=== PATIENT | male | born 1965 | race Hispanic/Latino ===

== ENCOUNTER 2018-05-27 16:18 | Inpatient (IN) | payer OTHER, SELFPAY ==
[~2018-05-27 16:18] MED LIST: ISOVUE-370 76%-LOCM 1 ML ONE
[2018-05-27 16:40] LABS: #Basophils 0.1 thou/uL (0.0-0.2); #Eosinphils 0.1 thou/uL (0.0-0.7); #Lymphocytes 2.4 thou/uL (1.20-3.40); #Neutrophils 9.4 thou/uL (1.40-6.50); %Basophils 0.5 % (0.0-1.0); %Eosinophils 0.9 % (0.0-10.0); %Lymphocytes 18.3 % (21.0-51.0); %Monocytes 7.4 % (0.0-10.0); Hemoglobin 15.2 g/dL (14.0-18.0); Mean Corpuscular HGB CONC 32.8 g/dL (32.0-36.0); Mean Corpuscular Hemoglobin 29.7 pg (27.0-31.0); Mean Corpuscular Volume 90.6 fL (78.0-98.0); Mean Platelet Volume 6.3 fL (7.4-10.4); Platelet Count 357 thou/uL (130-400); RBC Distribution Width 11.8 % (11.5-14.5); Red Blood Cell (RBC) Count 5.12 mill/uL (4.70-6.10); White Blood Cell (WBC) Count 12.8 thou/uL (4.8-10.8)
[2018-05-27] MEDS ORDERED: Adacel (T-DAP) 0.5 ML SYRINGE ONE (16:44)
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
[2018-05-27 16:53] LABS: ALT (SGPT) 475 U/L (8-55); AST (SGOT) 373 U/L (5-34); Albumin 4.5 g/dL (3.5-5.0); Alkaline Phosphatase 115 U/L (40-150); Anion Gap 15 mmol/L (10-20); BUN (Urea Nitrogen) 13 mg/dL (8.4-25.7); Bilirubin, Total 0.4 mg/dL (0.2-1.2); Calc. Creatinine Clearance 0 mL/min (70-130); Calcium 9.4 mg/dL (7.8-10.44); Carbon Dioxide 25 mmol/L (22-29); Chloride 104 mmol/L (98-107); Estimated GFR-MDRD 76; Globulin 3.1 g/dL (2.4-3.5); Glucose 131 mg/dL (70-105); Potassium 4.5 mmol/L (3.5-5.1); Protein, Total 7.6 g/dL (6.0-8.3); Sodium 139 mmol/L (136-145)
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
[2018-05-27] MEDS ORDERED: HYDROmorphone 0.5 MG/0.5 ML SYRINGE ONE ×2 (17:02→17:29)
[2018-05-27] MEDS ORDERED: Ondansetron PF 4 MG/2 ML Vial IVP PRN (17:19)
[2018-05-27] MEDS ORDERED: Dextrose 50% Abboject 50 ML SYRINGE SLOW IVP PRN (17:19)
[2018-05-27] MEDS ORDERED: Dextrose 5% in Water 1,000 ML IV PRN (17:19)
[2018-05-27] MEDS ORDERED: Rib Fracture Protocol IV SCH ×2 (17:30→18:13)
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
[2018-05-27] MEDS ORDERED: Cyclobenzaprine 10 MG TAB ONE (18:14)
[2018-05-27] MEDS ORDERED: Ketorolac Tromethamine 30 MG/ML VIAL ONE (18:17)
[2018-05-27 18:22] LABS: PTT 26.2 SEC (22.9-36.1); Prothrombin Time 12.8 SEC (12.0-14.7)
[2018-05-27 18:24] LABS: Magnesium 2.2 mg/dL (1.6-2.6); Phosphorus 3.8 mg/dL (2.3-4.7)
[2018-05-27] MEDS ORDERED: Acetaminophen 1,000 MG in Premix Bag 1 BAG IVPB SCH (18:30)
[2018-05-27] MEDS ORDERED: Rib Fracture Protocol PO SCH (18:30)
[2018-05-27 18:59] LABS: Actual Bicarbonate (HCO3a) 22.9 mEq/L (22-28); Analyzer IN Cardio ER; Base Excess (BEa) -2.6 mEq/L (-2.0 to +3.0); CO2 Tension 42.2 mmHg (35.0-45.0); Calcium, Ionized 1.16 mmol/L (1.12-1.30); Carboxyhemoglobin (COHb) 0.1 gm% (0.0-3.0); Hemoglobin (Hb) 14.9 g/dL (14.0-18.0); O2 Tension (PaO2) 86.1 mmHg (80.0-100.0); Potassium - ABG Lab 4.02 mmol/L (3.70-5.30); pH, Arterial 7.35 (7.35-7.45)
[2018-05-27 19:00] LABS: Puncture Site R BRACHIAL
[2018-05-27 19:10] LABS: Hemoglobin 14.8 g/dL (14.0-18.0)
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
[2018-05-27 20:36] LABS: Lactic Acid 2.8 mmol/L (0.5-2.2)
[2018-05-27 20:39] VITALS: BMI 40.7
[2018-05-27] MEDS: hydrALAZINE 20 MG/ML VIAL SLOW IVP PRN (21:36)
[2018-05-27] MEDS: Famotidine/PF 20 mg/2ml Vial SLOW IVP SCH (21:36)
[2018-05-27] MEDS: Gabapentin 300 MG CAP PO SCH (21:36)
[2018-05-27] MEDS: Sodium Chloride 0.9% 1,000 ML IV SCH (21:51)
[2018-05-27] MEDS: Silver Sulfadiazine 1% Cream 50 GM JAR TOP SCH (22:05)
[2018-05-27] MEDS ORDERED: Acetaminophen 650 MG Suppository PR SCH ×2 (23:59)
[2018-05-27] MEDS ORDERED: Ketorolac Tromethamine 30 MG/ML VIAL IVP SCH ×2 (23:59)
[2018-05-28] MEDS: Acetaminophen 500 MG TAB PO SCH ×5 (00:39→23:21)
[2018-05-28] MEDS: Ibuprofen 800 MG TAB PO SCH ×5 (00:39→23:21)
[2018-05-28] MEDS: traMADol HCl 50 MG TAB PO SCH ×5 (00:39→23:21)
[2018-05-28 00:50] LABS: Hemoglobin 14.3 g/dL (14.0-18.0)
[2018-05-28] MEDS: Sodium Chloride 0.9% 1,000 ML IV SCH ×2 (03:16→11:07)
[2018-05-28] MEDS: hydrALAZINE 20 MG/ML VIAL SLOW IVP PRN (03:17)
[2018-05-28 05:22] LABS: #Lymphocytes 0.6 thou/uL (1.20-3.40); #Monocytes 1.1 thou/uL (0.11-0.59); #Neutrophils 7.8 thou/uL (1.40-6.50); %Basophils 0.3 % (0.0-1.0); %Eosinophils 0.2 % (0.0-10.0); %Lymphocytes 6.6 % (21.0-51.0); %Neutrophils 81.9 % (42.0-75.0); Hemoglobin 13.5 g/dL (14.0-18.0); Mean Corpuscular HGB CONC 32.7 g/dL (32.0-36.0); Mean Corpuscular Hemoglobin 29.9 pg (27.0-31.0); Mean Corpuscular Volume 91.5 fL (78.0-98.0); Mean Platelet Volume 6.4 fL (7.4-10.4); Platelet Count 287 thou/uL (130-400); RBC Distribution Width 11.8 % (11.5-14.5); Red Blood Cell (RBC) Count 4.51 mill/uL (4.70-6.10); White Blood Cell (WBC) Count 9.5 thou/uL (4.8-10.8)
[2018-05-28 05:57] LABS: ALT (SGPT) 370 U/L (8-55); AST (SGOT) 263 U/L (5-34); Albumin 3.9 g/dL (3.5-5.0); Alkaline Phosphatase 86 U/L (40-150); Anion Gap 12 mmol/L (10-20); BUN (Urea Nitrogen) 14 mg/dL (8.4-25.7); Bilirubin, Total 0.7 mg/dL (0.2-1.2); Calc. Creatinine Clearance 189 mL/min (70-130); Calcium 8.7 mg/dL (7.8-10.44); Carbon Dioxide 28 mmol/L (22-29); Chloride 104 mmol/L (98-107); Estimated GFR-MDRD Greater than 90; Glucose 140 mg/dL (70-105); Protein, Total 6.9 g/dL (6.0-8.3); Sodium 140 mmol/L (136-145)
[2018-05-28] MEDS: Amlodipine 5 MG TAB PO SCH (08:07)
[2018-05-28] MEDS: Silver Sulfadiazine 1% Cream 50 GM JAR TOP SCH ×2 (08:07→20:34)
[2018-05-28] MEDS: Famotidine/PF 20 mg/2ml Vial SLOW IVP SCH ×2 (08:07→20:34)
[2018-05-28] MEDS: Gabapentin 300 MG CAP PO SCH ×3 (08:07→20:34)
--- NOTE | 2018-05-28 09:40 | RAD ---
SINGLE VIEW OF THE CHEST: COMPARISON: 05/27/2018. HISTORY: Rib fractures. Evaluate for pneumothorax. FINDINGS: A single view of the chest shows a normal-size cardiomediastinal silhouette. There is no evidence of consolidation, mass, pneumothorax, or pleural effusion on this exam. The previously seen right rib fractures cannot be seen on the inferior aspect of the film secondary to under penetration and low shalom ng volumes. IMPRESSION: No evidence of acute cardiopulmonary disease. POS: [facility]
[2018-05-28] MEDS ORDERED: Ciprofloxacin 500 MG TAB PO SCH (10:00)
[2018-05-28] MEDS ORDERED: metroNIDAZOLE 500 MG TAB PO SCH (10:00)
[2018-05-28] MEDS: cloNIDine 0.2 MG TAB PO SCH ×3 (10:50→23:21)
[2018-05-28 11:53] LABS: Bilirubin Negative (Negative); Blood, Urine Trace (Negative); Clarity CLEAR (Clear); Glucose, Urine (Dipstick) Negative (Negative); Leukocyte Negative (Negative); Nitrite Negative (Negative); Protein, Urine (Dipstick) Trace mg/dL (Neg-Trace); Specific Gravity, Urine 1.036 (1.002-1.036); Urobilinogen 0.2 mg/dL (0.2-1.0); pH, Urine 5.5 (5.0-9.0)
[2018-05-28 11:55] LABS: Bacteria/HPF None Seen HPF (None Seen); Hyaline Casts/LPF 0-3 HYALINE CAST LPF (0-3 Hyaline); Pathc Cast-AUWi Flag 0.13 (0-2.49); RBC/HPF 0-3 HPF (0-3); Squamous Epithelial 0-3 HPF (0-3); WBC/HPF 0-3 HPF (0-3)
[2018-05-28 12:19] LABS: Renal Epithelial None Seen HPF (0-3); Transitional Epithelial NONE SEEN HPF (0-3)
[2018-05-28 12:30] LABS: #Eosinphils 0.1 thou/uL (0.0-0.7); #Lymphocytes 0.7 thou/uL (1.20-3.40); #Neutrophils 8.4 thou/uL (1.40-6.50); %Basophils 0.1 % (0.0-1.0); %Eosinophils 0.6 % (0.0-10.0); %Lymphocytes 6.5 % (21.0-51.0); %Monocytes 9.4 % (0.0-10.0); %Neutrophils 83.4 % (42.0-75.0); Hemoglobin 13.5 g/dL (14.0-18.0); Mean Corpuscular HGB CONC 32.8 g/dL (32.0-36.0); Mean Corpuscular Hemoglobin 30.1 pg (27.0-31.0); Mean Platelet Volume 6.3 fL (7.4-10.4); Platelet Count 297 thou/uL (130-400); RBC Distribution Width 11.9 % (11.5-14.5); Red Blood Cell (RBC) Count 4.48 mill/uL (4.70-6.10); White Blood Cell (WBC) Count 10.1 thou/uL (4.8-10.8)
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
[2018-05-28] MEDS: metroNIDAZOLE 500 MG TAB PO SCH ×2 (15:06→20:34)
[2018-05-28] MEDS: Cyclobenzaprine 10 MG TAB PO PRN (16:08)
[2018-05-28] MEDS: Senokot S 8.6-50 MG TAB PO SCH (20:34)
[2018-05-28] MEDS: Ciprofloxacin 500 MG TAB PO SCH (20:34)
[2018-05-29] MEDS: Cyclobenzaprine 10 MG TAB PO PRN ×2 (02:52→21:00)
[2018-05-29] MEDS: Acetaminophen 500 MG TAB PO SCH ×3 (05:22→18:32)
[2018-05-29] MEDS: traMADol HCl 50 MG TAB PO SCH ×3 (05:23→18:32)
[2018-05-29] MEDS: Ciprofloxacin 500 MG TAB PO SCH ×2 (05:23→20:58)
[2018-05-29] MEDS: Ibuprofen 800 MG TAB PO SCH ×3 (05:23→18:32)
[2018-05-29] MEDS: cloNIDine 0.2 MG TAB PO SCH ×3 (05:23→13:46)
[2018-05-29 05:57] LABS: Anion Gap 11 mmol/L (10-20); BUN (Urea Nitrogen) 17 mg/dL (8.4-25.7); Calc. Creatinine Clearance 146 mL/min (70-130); Calcium 8.7 mg/dL (7.8-10.44); Carbon Dioxide 29 mmol/L (22-29); Chloride 99 mmol/L (98-107); Estimated GFR-MDRD 70; Glucose 129 mg/dL (70-105); Magnesium 2.2 mg/dL (1.6-2.6); Phosphorus 3.1 mg/dL (2.3-4.7); Potassium 4.1 mmol/L (3.5-5.1); Sodium 135 mmol/L (136-145)
--- NOTE | 2018-05-29 08:43 | RAD ---
PORTABLE CHEST: HISTORY: Fractured ribs with pulmonary contusion. COMPARISON: 05/28/2018. FINDINGS: Bibasilar atelectasis and/or infiltrates. Small effusions cannot be excluded. Upper lung bass rosa m ear clear. No evidence of pneumothorax. No significant interval change. POS: [facility]
[2018-05-29] MEDS ORDERED: Amlodipine 5 MG TAB PO SCH (09:00)
[2018-05-29] MEDS: Polyethylene Glycol 3350 17 GM Packet PO SCH (09:12)
[2018-05-29] MEDS: metroNIDAZOLE 500 MG TAB PO SCH ×3 (09:12→20:58)
[2018-05-29] MEDS: Gabapentin 300 MG CAP PO SCH ×3 (09:13→20:58)
[2018-05-29] MEDS: Amlodipine 5 MG TAB PO SCH (09:13)
[2018-05-29] MEDS: Senokot S 8.6-50 MG TAB PO SCH ×2 (09:13→20:58)
[2018-05-29] MEDS: Silver Sulfadiazine 1% Cream 50 GM JAR TOP SCH ×2 (09:13→20:58)
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
[2018-05-29] MEDS: Aspirin 81 mg Enteric Coated Tablet PO SCH (20:58)
[2018-05-30] MEDS: Ibuprofen 800 MG TAB PO SCH ×4 (01:33→18:04)
[2018-05-30] MEDS: Acetaminophen 500 MG TAB PO SCH ×4 (01:33→18:03)
[2018-05-30] MEDS: traMADol HCl 50 MG TAB PO SCH ×4 (01:34→18:03)
[2018-05-30] MEDS: cloNIDine 0.2 MG TAB PO SCH ×5 (01:35→22:17)
[2018-05-30] MEDS: Ciprofloxacin 500 MG TAB PO SCH ×2 (06:36→20:05)
--- NOTE | 2018-05-30 09:02 | RAD ---
CHEST ONE VIEW: HISTORY: Follow up rib fractures and pulmonary contusion. COMPARISON: 05/29/2018 FINDINGS: Persistent abnormal perihilar and mid and lower lung zone pleural and parenchymal changes are again n oted. No pneumothorax. Stable from prior study. IMPRESSION: Stable bilateral pleural and parenchymal opacity changes in the mid lung zones, perihilar regions, an d lower lung zones. Continue short-term followup. POS: [facility]
[2018-05-30] MEDS: Aspirin 81 mg Enteric Coated Tablet PO SCH ×2 (09:11→20:05)
[2018-05-30] MEDS: metroNIDAZOLE 500 MG TAB PO SCH ×3 (09:11→20:05)
[2018-05-30] MEDS: Polyethylene Glycol 3350 17 GM Packet PO SCH (09:11)
[2018-05-30] MEDS: Senokot S 8.6-50 MG TAB PO SCH ×2 (09:11→20:06)
[2018-05-30] MEDS: Amlodipine 5 MG TAB PO SCH (09:12)
[2018-05-30] MEDS: Gabapentin 300 MG CAP PO SCH ×3 (09:12→20:06)
[2018-05-30] MEDS: Silver Sulfadiazine 1% Cream 50 GM JAR TOP SCH ×2 (12:18→20:08)
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
[2018-05-31] MEDS: traMADol HCl 50 MG TAB PO SCH ×4 (00:06→16:09)
[2018-05-31] MEDS: Ibuprofen 800 MG TAB PO SCH ×3 (00:06→11:49)
[2018-05-31] MEDS: Acetaminophen 500 MG TAB PO SCH ×3 (00:06→11:49)
[2018-05-31] MEDS: cloNIDine 0.2 MG TAB PO SCH ×3 (04:57→15:30)
[2018-05-31] MEDS: Ciprofloxacin 500 MG TAB PO SCH (05:55)
[2018-05-31 06:07] LABS: Band 2 % (5-11); Hemoglobin 11.5 g/dL (14.0-18.0); Hypochromia SLIGHT = 6-15 cells (100X) (0-5/hpf); Lymphocytes 2 % (21-51); MDiff Complete? YES; Mean Corpuscular HGB CONC 32.2 g/dL (32.0-36.0); Mean Corpuscular Hemoglobin 29.5 pg (27.0-31.0); Mean Corpuscular Volume 91.5 fL (78.0-98.0); Mean Platelet Volume 6.9 fL (7.4-10.4); Monocytes 3 % (0-10); Neutrophil 93 % (42-75); Platelet Count 291 thou/uL (130-400); Platelet Morphology Comment Appears Adequate; RBC Distribution Width 11.8 % (11.5-14.5); Red Blood Cell (RBC) Count 3.91 mill/uL (4.70-6.10); White Blood Cell (WBC) Count 9.1 thou/uL (4.8-10.8)
[2018-05-31 06:20] LABS: Anion Gap 12 mmol/L (10-20); BUN (Urea Nitrogen) 16 mg/dL (8.4-25.7); Calc. Creatinine Clearance 200 mL/min (70-130); Calcium 9.2 mg/dL (7.8-10.44); Carbon Dioxide 31 mmol/L (22-29); Chloride 94 mmol/L (98-107); Estimated GFR-MDRD Greater than 90; Glucose 123 mg/dL (70-105); Magnesium 3.2 mg/dL (1.6-2.6); Phosphorus 3.8 mg/dL (2.3-4.7); Potassium 4.8 mmol/L (3.5-5.1); Sodium 132 mmol/L (136-145)
--- NOTE | 2018-05-31 07:45 | RAD ---
PORTABLE CHEST: HISTORY: Cough. Congestion. COMPARISON: Prior day's exam. FINDINGS: Heart size is enlarged. There is elevation of the right hemidiaphragm. There is some minimal parenc hymal change in the right base. Obscuration of the left heart border suggests some lingular parenchy mal change. All these findings appear stable, as compared to the prior exam. IMPRESSION: Stable chest. POS: [facility]
[2018-05-31] MEDS: Gabapentin 300 MG CAP PO SCH ×2 (09:22→15:30)
[2018-05-31] MEDS: Amlodipine 5 MG TAB PO SCH (09:22)
[2018-05-31] MEDS: metroNIDAZOLE 500 MG TAB PO SCH ×2 (09:22→15:30)
[2018-05-31] MEDS: Senokot S 8.6-50 MG TAB PO SCH (09:23)
[2018-05-31] MEDS: Aspirin 81 mg Enteric Coated Tablet PO SCH (09:23)
[2018-05-31] MEDS: Polyethylene Glycol 3350 17 GM Packet PO SCH (09:23)
[2018-05-31] MEDS: Silver Sulfadiazine 1% Cream 50 GM JAR TOP SCH (09:23)
[2018-05-31] MEDS ORDERED: Bisacodyl 10 MG SUPP PR SCH (10:30)
[2018-05-31] MEDS: Cyclobenzaprine 10 MG TAB PO PRN (15:30)
[2018-05-31 15:31] VITALS: BP 135/78; TEMP 98.5
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
== END 2018-05-31 16:20 | disposition home or self-care (01) | DRG 964 ==
LOC: ERS 16:18 → ERHOLD 18:38 → CCU 19:49 → SURG A 05-28 10:17
PROVIDERS: ADMIT Surgery; ATTEND Surgery
DX: S22.41XA Multiple fractures of ribs, right side, initial encounter for closed fracture (principal); S36.115A Moderate laceration of liver, initial encounter; S27.321A Contusion of lung, unilateral, initial encounter; K57.32 Diverticulitis of large intestine without perforation or abscess without bleeding; S36.81XA Injury of peritoneum, initial encounter; Z68.41 Body mass index [BMI] 40.0-44.9, adult; E27.9 Disorder of adrenal gland, unspecified; E66.9 Obesity, unspecified; I10 Essential (primary) hypertension; Z79.899 Other long term (current) drug therapy; V49.88XA Car occupant (driver) (passenger) injured in other specified transport accidents, initial encounter
CPT/HCPCS: 36415; 70450; 71045; 71260; 72125; 74177; 80048; 80053; 81001; 82805; 83605; 83735; 84100; 85007; 85025; 85027; 85610; 85730; 86850; 86900; 86901; 90715; 93005; 94640; 94760; 96365; 96375; 99292; G0390; J0131; J0360; J1170; J1885; J7620; Q9966; S0028

== ENCOUNTER 2018-06-05 11:07 | Outpatient (CLI) | payer OTHER ==
--- NOTE | 2018-06-05 13:48 | RAD ---
TWO VIEW CHEST: INDICATIONS: Rib fractures. COMPARISON: 05/31/2018 FINDINGS: Right-sided effusion and right basilar atelectasis or infiltrate. Right-sided rib fractures. No sig nificant pneumothorax identified. A small amount of fluid is seen within the pleural surface, along the lateral right chest wall. There is mild left pleural thickening. No significant left effusion. Heart size is mildly prominent , as noted previously. Vascularity is upper normal. IMPRESSION: 1. Right-sided effusion and right basilar atelectasis. 2. No significant pneumothorax apparent. POS: [facility]
== END 2018-06-05 11:08 | disposition home or self-care (01) ==
LOC: RAD 11:07
PROVIDERS: ATTEND Physician Assistant Medical
DX: S22.41XD Multiple fractures of ribs, right side, subsequent encounter for fracture with routine healing (principal); J98.11 Atelectasis; J90 Pleural effusion, not elsewhere classified
CPT/HCPCS: 36415; 71046; 80053; 85027

== ENCOUNTER 2018-06-22 12:26 | Outpatient (CLI) | payer OTHER ==
--- NOTE | 2018-06-22 12:52 | RAD ---
F2 view chest Comparison 06/05/2018 CLINICAL INDICATION: Closed fracture of right ribs FINDINGS: There are displaced right rib fractures with adjacent pleural based density. Patchy left ba silar density is similar. There is enlargement of the cardiac silhouette. No discrete pneumothorax vi sualized. IMPRESSION: Redemonstration of post rheumatic deformity of right chest with adjacent pleural-based de nsity at the inferior right hemithorax. No interval development of a significant posttraumatic pneumo thorax. Exam is grossly stable.
== END 2018-06-22 12:27 | disposition home or self-care (01) ==
LOC: RAD 12:26
PROVIDERS: ATTEND Physician Assistant
DX: S22.41XD Multiple fractures of ribs, right side, subsequent encounter for fracture with routine healing (principal); J98.4 Other disorders of lung
CPT/HCPCS: 71046

== ENCOUNTER 2018-07-18 15:37 | Outpatient (CLI) | payer OTHER ==
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
== END 2018-07-18 15:38 | disposition home or self-care (01) ==
LOC: RAD 15:37
PROVIDERS: ATTEND Nurse Practitioner Acute Care
DX: S22.41XD Multiple fractures of ribs, right side, subsequent encounter for fracture with routine healing (principal)
CPT/HCPCS: 71046

== ENCOUNTER 2018-08-31 13:10 | Outpatient (CLI) | payer OTHER ==
[~2018-08-31 13:10] MED LIST changes: -ISOVUE-370 76%-LOCM 1 ML ONE; +Iopamidol 370 76% 100 ML VIAL ONE
--- NOTE | 2018-08-31 16:16 | CT ---
CT Abdomen Pelvis W Con History: Major laceration of liver. Comparison: CT chest, abdomen, and pelvis May 27, 2018 Findings: Mild atelectasis within the right middle lobe. No pericardial effusion. Healing right rib f ractures with callus formation. No remaining sequelae of liver laceration. No perihepatic fluid. No subcapsular hematoma. Spleen is unremarkable. Kidneys are unremarkable. Mild diverticular disease sigmoid colon without active current inflammation. No hydronephrosis. Aortoiliac contour is nonaneurysmal. Focal fundal gallbladder adenomyomatosis. No acute osseous abnormality. Impression: 1. No remaining posttraumatic sequelae of liver laceration. Normal appearance of the liver. 2. Healing right rib fractures.
== END 2018-08-31 13:11 | disposition home or self-care (01) ==
LOC: SCSCT 13:10
PROVIDERS: ATTEND Family Medicine
DX: S36.116A Major laceration of liver, initial encounter (principal); S22.31XD Fracture of one rib, right side, subsequent encounter for fracture with routine healing
CPT/HCPCS: 74177; Q9967